=== PATIENT | female | born 1990 | race Two or more races ===

== ENCOUNTER 2016-09-01 06:15 | Emergency (ER) | payer OTHER ==
[2016-09-01 06:23] VITALS: PULSE 65; TEMP 97.9
[2016-09-01] MEDS ORDERED: PHENAZOPYRIDINE HCL 200 MG TAB PO ONE (06:34)
[2016-09-01] MEDS ORDERED: PHENAZOPYRIDINE HCL 200 MG TAB ONE (06:36)
[2016-09-01 06:50] LABS: COLOR YELLOW; LEUKOCYTE ESTERASE,URINE 2+ (NEGATIVE); NITRITE,URINE NEGATIVE (NEGATIVE)
[2016-09-01 06:53] LABS: MUCUS 4+ /lpf (NONE-1+); WBC,URINE 50-182 /hpf (0-3)
[2016-09-01] MEDS ORDERED: CEPHALEXIN 500 MG CAP PO ONE (07:10)
--- NOTE | 2016-09-01 07:15 | EDPHY ---
H & P Stated Complaint: FREQUENCY, PAIN WITH URINATION X2 DAYS Time Seen by Provider: 09/01/16 07:03 HPI/ROS: CHIEF COMPLAINT: Dysuria HISTORY OF PRESENT ILLNESS: Patient is a 25-year-old female who comes to the emergency department complaining dysuria and frequency. She states that she has had the symptoms for the last 3 days most predominantly in the morning. No fever. No flank pain. No hematuria. No discharge or bleeding. Last menstrual period 1 week ago. REVIEW OF SYSTEMS: Constitutional: denies: chills, fever, recent illness, recent injury EENTM: denies: blurred vision, double vision, nose congestion Respiratory: denies: cough, shortness of breath Cardiac: denies: chest pain, irregular heart rate, lightheadedness, palpitations Gastrointestinal/Abdominal: See HPI Genitourinary: denies: dysuria, frequency, hematuria, pain Musculoskeletal: denies: joint pain, muscle pain Skin: denies: lesions, rash, jaundice, bruising Neurological: denies: headache, numbness, paresthesia, tingling, dizziness, weakness Hematologic/Lymphatic: denies: blood clots, easy bleeding, easy bruising Immunologic/allergic: denies: HIV/AIDS, transplant EXAM: GENERAL: Well-appearing, well-nourished and in no acute distress. HEAD: Atraumatic, normocephalic. EYES: Pupils equal round and reactive to light, extraocular movements intact, sclera anicteric, conjunctiva are normal. ENT: TMs normal, nares patent, oropharynx clear without exudates. Moist mucous membranes. NECK: Normal range of motion, supple without lymphadenopathy or JVD. LUNGS: Breath sounds clear to auscultation bilaterally and equal. No wheezes rales or rhonchi. HEART: Regular rate and rhythm without murmurs, rubs or gallops. ABDOMEN: Soft, nontender, normoactive bowel sounds. No guarding, no rebound. No masses appreciated. BACK: No CVA tenderness, no spinal tenderness, step-offs or deformities EXTREMITIES: Normal range of motion, no pitting or edema. No clubbing or cyanosis. NEUROLOGICAL: Cranial nerves II through XII grossly intact. Normal speech, normal gait. 5/5 strength, normal movement in all extremities, normal sensation PSYCH: Normal mood, normal affect. SKIN: Warm, dry, normal turgor, no visible rashes or lesions. Source: Patient Exam Limitations: No limitations - Personal History LMP (Females 10-55): 1-7 Days Ago Current Tetanus/Diphtheria Vaccine: Yes - Medical/Surgical History Hx Asthma: No Hx Chronic Respiratory Disease: No Hx Diabetes: No Hx Cardiac Disease: No Hx Renal Disease: No Hx Cirrhosis: No Hx Alcoholism: No Hx HIV/AIDS: No Hx Splenectomy or Spleen Trauma: No Other PMH: SHALONDA - Family History Significant Family History: No pertinent family hx - Social History Smoking Status: Current some day smoker Alcohol Use: Sober Drug Use: None Constitutional: Initial Vital Signs Temperature (C) 36.6 C 09/01/16 06:19 Heart Rate 65 09/01/16 06:19 Respiratory Rate 18 09/01/16 06:19 Blood Pressure 110/83 H 09/01/16 06:19 O2 Sat (%) 99 09/01/16 06:19 O2 Delivery Mode Room Air Allergies/Adverse Reactions: No Known Allergies Allergy (Unverified 09/01/16 06:19) Home Medications: Medication Instructions Recorded Cephalexin [Keflex] 500 mg PO TID #21 cap 09/01/16 Phenazopyridine HCl [Pyridium] 200 mg PO TID #6 tab 09/01/16 Medical Decision Making ED Course/Re-evaluation: The patient's urinalysis is positive. I will start her on Keflex. She has received Pyridium already. She does not typically get yeast infections. We discussed using [id number] solutions if needed. She is happy with this plan and declines further workup or testing at this time. Differential Diagnosis: Partial list of the Differential diagnosis considered include but were not limited to; urinary tract infection, kidney stone, and although unlikely based on the history and physical exam, I also considered obstruction, appendicitis, diverticulitis, torsion. I discussed these differential diagnoses and the plan with the patient as well as the usual and expected course. The patient understands that the diagnosis is provisional and that in medicine we are not always correct and that further workup is often warranted. Usual and customary warnings were given. All of the patient's questions were answered. The patient was instructed to return to the emergency department should the symptoms at all worsen or return, otherwise to followup with the physician as we discussed. - Data Points Laboratory Results: 09/01/16 06:30 Urine Color YELLOW Urine Appearance MODERATELY TURBID Urine pH 5.0 (5.0-7.5) Ur Specific [place] 1.023 (1.002-1.030) Urine Protein NEGATIVE (NEGATIVE) Urine Ketones NEGATIVE (NEGATIVE) Urine Blood NEGATIVE (NEGATIVE) Urine Nitrate NEGATIVE (NEGATIVE) Urine Bilirubin NEGATIVE (NEGATIVE) Urine Urobilinogen 4.0 H EU (0.2-1.0) Ur Leukocyte Esterase 2+ H (NEGATIVE) Urine RBC 3-5 H /hpf (0-3) Urine WBC 50-182 H /hpf (0-3) Ur Epithelial Cells 4+ H /lpf (NONE-1+) Urine Mucus 4+ H /lpf (NONE-1+) Urine Glucose NEGATIVE (NEGATIVE) Medications Given: Discontinued Medications Cephalexin HCl (Keflex) 500 mg PO EDNOW ONE PRN Reason: Protocol Stop: 09/01/16 07:11 Last Admin: 09/01/16 07:13 Dose: 500 mg Phenazopyridine HCl (Pyridium) 200 mg PO EDNOW ONE Stop: 09/01/16 06:35 Last Admin: 09/01/16 06:43 Dose: 200 mg Departure - Departure Disposition: Home, Routine, Self-Care Clinical Impression: Urinary tract infection Qualifiers: Urinary tract infection type: acute cystitis Hematuria presence: without hematuria Qualifier Code: (N30.00) Acute cystitis without hematuria Condition: Fair Instructions: Urinary Tract Infection in Women (ED) Referrals: [place] STATE,. [Primary Care Provider] - As per Instructions Indira Dixon MD [Medical Doctor] - As per Instructions Prescriptions: Cephalexin [Keflex] 500 mg PO TID #21 cap Phenazopyridine HCl [Pyridium] 200 mg PO TID #6 tab
[2016-09-01 07:46] VITALS: BP 119/76; RESP 16; O2SAT 98
== END 2016-09-01 07:45 | disposition home or self-care (01) ==
DX: N30.00 Acute cystitis without hematuria (principal); F17.200 Nicotine dependence, unspecified, uncomplicated